=== PATIENT | female | born 1975 | race Caucasian/White ===

== ENCOUNTER 2017-06-18 17:39 | Emergency (ER) | payer OTHER ==
[~2017-06-18] VITALS: Ht 154.9 cm; Wt 54.9 kg
[2017-06-18 17:52] VITALS: BP 137/77
--- NOTE | 2017-06-18 21:44 | NUR ---
PT AMB TO ER BED 12
--- NOTE | 2017-06-18 21:45 | NUR ---
PATIENT PRESENTS TO ED WITH C/O VAG DISCHARGE AND ODOR PT DENIES N/V/D; SKIN IS PINK/WARM/DRY; AAOX4 WITH EVEN AND STEADY GAIT; LUNGS CLEAR BL; HR EVEN AND REGULAR; PT DENIES ANY FEVER, CP, SOB, OR COUGH AT THIS TIME; PATIENT STATES PAIN OF 0/10 AT THIS TIME; VSS; PATIENT POSITIONED FOR COMFORT; HOB ELEVATED; BEDRAILS UP X2; BED DOWN. ER MD MADE AWARE OF PT STATUS.
[2017-06-19 00:07] LABS: APPEARANCE,URINE CLOUDY (CLEAR); BILIRUBIN,URINE NEGATIVE (NEGATIVE); BLOOD, URINE NEGATIVE (NEGATIVE); COLOR,URINE YELLOW (YELLOW); LEUKOCYTE ESTERASE ,URINE NEGATIVE (NEGATIVE); NITRITE, URINE NEGATIVE (NEGATIVE); UGLUCOSE NEGATIVE (NEGATIVE)
[2017-06-19 00:16] LABS: RBC,URINE 0-5 (RARE) /HPF (0-5); WBC,URINE 0-5 (RARE) /HPF (0-5)
--- NOTE | 2017-06-19 02:34 | NUR ---
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 SWABS SENT TO LAB
--- NOTE | 2017-06-19 02:48 | NUR ---
Patient appears to be resting comfortably in bed. Vital Signs within normal limits. Respirations even and unlabored.
[2017-06-19] MEDS ORDERED: AZITHROMYCIN 250 MG TAB PO ONE (03:15)
[2017-06-19] MEDS ORDERED: cefTRIAXone 250 MG in LIDOCAINE MPF 1% - **ER/OR** 0.9 ML IM ONE (03:15)
--- NOTE | 2017-06-19 03:46 | NUR ---
Patient discharged with v/s stable. Written and verbal after care instructions given and explained. Patient alert, oriented and verbalized understanding of instructions. Ambulatory with steady gait. All questions addressed prior to discharge. ID band removed. Patient advised to follow up with PMD. Rx of DIFLUCAN given. Patient educated on indication of medication including possible reaction and side effects. Opportunity to ask questions provided and answered.
[2017-06-19 03:57] VITALS: BP 108/75
[2017-06-23 06:20] LABS: CHLAMYDIA TRACHOMATIS AMP DNA Negative (Negative)
== END 2017-06-19 03:57 | disposition home or self-care (01) ==
LOC: MED 17:39
DX: N34.2 Other urethritis (principal)
CPT/HCPCS: 36415; 81001; 81025; 87210; 96372; 99284; J0696; J2001; 87491

== ENCOUNTER 2022-05-08 21:59 | Emergency (ER) | payer OTHER ==
[~2022-05-08] VITALS: Ht 154.9 cm; Wt 55.3 kg
--- NOTE | 2022-05-08 22:00 | NUR ---
[facility] TO BED #6
[2022-05-08 22:01] VITALS: BP 94/66
--- NOTE | 2022-05-08 22:19 | NUR ---
Blood for labwork drawn from right arm by circulation worker. Patient tolerated well.
--- NOTE | 2022-05-08 22:24 | NUR ---
Dr. Krishnan examining patient.
[2022-05-08 22:27] LABS: BASOPHILS % (AUTO) 0.7 % (0.0-2.0); EOSINOPHILS % (AUTO) 0.5 % (0.0-4.0); HEMATOCRIT 33.1 % (36-48); HEMOGLOBIN 11.1 g/dL (12.0-16.0); LYMPHOCYTES # (AUTO) 1.6 K/uL (2.5-16.5); LYMPHOCYTES % (AUTO) 28.2 % (20.5-51.1); MEAN CORPUSCULAR HEMOGLOBIN 30 pg (27-31); MEAN CORPUSCULAR HGB CONC 34 g/dL (33-37); MEAN CORPUSCULAR VOLUME 89.3 fL (80-94); MONOCYTES # (AUTO) 0.5 K/uL (0.8-1.0); MONOCYTES % (AUTO) 9.7 % (1.7-9.3); NEUTROPHILS # (AUTO) 3.4 K/uL (1.8-7.7); NEUTROPHILS % (AUTO) 60.9 % (42.2-75.2); PLATELET COUNT (AUTO) 184 K/uL (140-450); RED CELL DISTRIBUTION WIDTH 12.7 % (11.6-13.7); WHITE BLOOD COUNT (AUTO) 5.5 K/uL (4.8-10.8)
--- NOTE | 2022-05-08 22:44 | NUR ---
X-Ray at bedside.
[2022-05-08 22:49] LABS: ALBUMIN 3.3 g/dL (3.4-5.0); ANION GAP 11.4 (8-16); ASPARTATE AMINOTRANSFERASE 20 U/L (15-37); CARBON DIOXIDE 26.7 mmol/L (21-32); CHLORIDE 103 mmol/L (98-107); CREATININE 0.6 mg/dL (0.6-1.3); GFR ARICAN-AMERICAN 138 mL/min (>90); GLUCOSE 112 mg/dL (74-106); POTASSIUM 3.1 mmol/L (3.5-5.1); SODIUM SERUM 138 mmol/L (136-145); TOTAL BILIRUBIN 0.2 mg/dL (0.0-1.0); UREA NITROGEN, BLOOD 11 mg/dL (7-18)
[2022-05-08] MEDS ORDERED: NACL 0.9% 1,000 ML IV ONE (22:55)
[2022-05-08] MEDS ORDERED: HYDROcodone/APAP 5/325 MG 1 TAB TAB PO ONE (22:55)
--- NOTE | 2022-05-08 23:10 | NUR ---
Patient unable to provide urine sample this time.
--- NOTE | 2022-05-08 23:11 | NUR ---
EMT at bedside doing wound tx to scalp
--- NOTE | 2022-05-09 01:26 | NUR ---
Patient appears to be resting comfortably in bed. Vital Signs within normal limits. Respirations even and unlabored.
--- NOTE | 2022-05-09 02:21 | NUR ---
Urine sample collected and sent to lab.
--- NOTE | 2022-05-09 02:25 | NUR ---
Pt assisted to restroom. Gait steady.
[2022-05-09 02:52] LABS: APPEARANCE,URINE CLEAR (CLEAR); BILIRUBIN,URINE NEGATIVE (NEGATIVE); BLOOD, URINE NEGATIVE (NEGATIVE); COLOR,URINE YELLOW (YELLOW); LEUKOCYTE ESTERASE ,URINE NEGATIVE (NEGATIVE); NITRITE, URINE NEGATIVE (NEGATIVE); UGLUCOSE NEGATIVE (NEGATIVE)
[2022-05-09] MEDS ORDERED: POTASSIUM CHLORIDE 10 MEQ TABER PO ONE (03:00)
[2022-05-09 03:49] LABS: BARBITURATE, URINE NEGATIVE ng/ml (NEG <=200); BENZODIAZEPINE, URINE NEGATIVE ng/mL (NEG <=200); CANNABINOID, URINE POSITIVE ng/mL (NEG <=50); COCAINE, URINE NEGATIVE ng/mL (NEG <=300); OPIATE, URINE NEGATIVE ng/mL (NEG <=2000); PHENCYCLIDINE SCREEN,URINE NEGATIVE ng/mL (NEG <=25)
--- NOTE | 2022-05-09 04:07 | NUR ---
Pt resting comfortably in bed. No s/s distress or discomfort. VSS.
--- NOTE | 2022-05-09 04:38 | NUR ---
Dr. Krishnan examining patient.
[2022-05-09 04:40] VITALS: BP 91/53
--- NOTE | 2022-05-09 04:40 | NUR ---
Patient discharged with v/s stable. Written and verbal after care instructions given and explained. Patient verbalized understanding. Ambulatory with steady gait. All questions addressed prior to discharge. Advised to follow up with PMD. Addendum: 05/09/22 at 0502 by [email or web address] Called house wirer helper to arrange er for pt.
== END 2022-05-09 04:40 | disposition home or self-care (01) ==
LOC: MED 21:59
DX: S09.90XA Unspecified injury of head, initial encounter (principal); E87.6 Hypokalemia; R55 Syncope and collapse; R42 Dizziness and giddiness; R51.9 Headache, unspecified; W19.XXXA Unspecified fall, initial encounter; Y93.89 Activity, other specified; Y92.89 Other specified places as the place of occurrence of the external cause; Y99.8 Other external cause status
CPT/HCPCS: 36415; 70450; 71045; 80053; 80305; 81003; 81025; 84484; 85025; 93005; 96360; 99285; G0482; Q0092